=== PATIENT | female | born 1995 | race Caucasian/White ===

== ENCOUNTER → 2017-06-29 | Outpatient (CLI) | payer BC ==
[2017-06-29 15:44] LABS: HEMATOCRIT 41.7 % (37.0-47.0); HEMOGLOBIN 14.8 g/dL (12.0-16.0); MEAN CORPUSCULAR HEMOGLOBIN 32.5 PG (27-31); MEAN CORPUSCULAR HGB CONC 35.5 g/dL (33-37); MEAN CORPUSCULAR VOLUME 91.6 FL (81-99); MEAN PLATELET VOLUME 12.2 FL (7.4-12.2); RED BLOOD COUNT 4.55 10^6/uL (4.20-5.40)
== END ==
LOC: MOB LAB 15:14
PROVIDERS: ATTEND Student in an Organized Health Care Education/Training Program
DX: R10.84 Generalized abdominal pain (principal); R19.7 Diarrhea, unspecified
CPT/HCPCS: 36415; 82784; 83516; 85027

== ENCOUNTER → 2017-07-10 | Outpatient (CLI) | payer BC ==
--- NOTE | 2017-07-10 10:21 | DI ---
GALLBLADDER AND LIVER ULTRASOUND, 07/10/2017 7:47 AM: Clinical History: Right upper quadrant abdominal pain. Colicky type pain. Previous Exam: None at this facility. Technique: Scans are performed through the right upper quadrant in multiple projections. The patient was rolled from side to side and the gallbladder was balloted with the probe to facilitate visualizat ion of small gallstones. The gallbladder is well distended and has a normal wall thickness. There are no gallstones. The commo n bile duct measures less than 2 mm. The pancreas is visualized from the head to the body and is norm al. The visualized portions of the liver, right kidney, and IVC are normal. The aorta is normal. Readin. The gallbladder is normal. The common duct measures less than 2 mm. 2. The liver, right kidney, pancreas, IVC, and aorta are normal
== END ==
LOC: US 07:46
PROVIDERS: ATTEND Student in an Organized Health Care Education/Training Program
DX: R10.11 Right upper quadrant pain (principal)
CPT/HCPCS: 76705

== ENCOUNTER 2018-09-24 14:56 | Observation (INO) ==
[2018-09-24 16:15] LABS: Hematocrit [HCT] 39.5 % (37.0-47.0); MEAN CORPUSCULAR HEMOGLOBIN 32.2 PG (27-31); MEAN CORPUSCULAR HGB CONC 35.4 g/dL (33-37); MEAN CORPUSCULAR VOLUME 90.8 FL (81-99); MEAN PLATELET VOLUME 12.6 FL (7.4-12.2); RED BLOOD COUNT 4.35 10^6/uL (4.20-5.40)
[2018-09-24 16:29] LABS: BLOOD UREA NITROGEN 9 mg/dL (7-22); SERUM ALBUMIN 3.8 g/dL (3.5-4.8); Uric Acid 4.7 mg/dl (2.5-6.2)
--- NOTE | 2018-09-24 17:21 | DI ---
LIMITED OBSTETRICAL ULTRASOUND FOR BIOPHYSICAL PROFILE, 09/24/2018 4:01 PM Clinical History: Nonreactive NST. Previous Exam: 09/21/2018. EDC Based on Early OB US: 10/23/2018. JANI: 11.4 cm. Heart Rate: 149 beats per minute. Respiration Score: 2 Fine Motor Score: 2 Gross Motor Score: 2 Amnionic Fluid Score: 2 Reading: Biophysical Profile Score: 06/23
--- NOTE | 2018-09-24 17:26 | DI ---
LIMITED OBSTETRICAL ULTRASOUND FOR JANI AND CORD DOPPLER ULTRASOUND, 09/24/2018 3:52 PM: Clinical History: Variable decelerations. Previous Exam: 09/21/2018. EDC Based On Early OB Ultrasound: 10/23/2018. Scans are obtained in all four quadrants for an amnionic fluid index measurement. The JANI is 11.4 cm. The heart rate varies between 138-169 beats per minute. Cord Doppler ultrasound shows diastoli c flow. Systolic/diastolic ratios are 2.9, 2.3, 2.1, 2.8, and 2.8. These values are all within normal limits. Readin. Amnionic fluid index is 11.4 cm. 2. Cord Doppler ultrasound is normal.
--- NOTE | 2018-09-24 17:57 | OB.PROGRES ---
Intake - - Reason for Visit/Chief Complaint: NST Admitted From: Home - Estimated Due Date: 10/23/18 Gestational Age in Weeks and Days: 35 Weeks and 6 Days Para: 0 Term Births: 0 Births: 0 Number of Abortions (Spont./Elective): 0 Living Children: 0 - Labs Blood Type and Rh: B+ Group B Strep: Unknown Hepatitis B Surface Antigen: Absent HIV: Negative Rubella Status: Immune VDRL/RPR: Absent Maternal - Vital Signs Last Taken Vital Signs: Vital Signs - Last Taken Temperature 97.5 F 09/24/18 15:08 Pulse Rate 72 09/24/18 15:08 Respiratory Rate 16 09/24/18 15:08 Blood Pressure 123/67 09/24/18 15:08 Pulse Ox 99 09/24/18 15:08 - Vaginal Discharge Vaginal Bleeding Amount: None Vaginal Discharge Amount: None Results - Labs CBC and BMP: 09/24/18 16:07 09/24/18 16:07 - Bedside Testing Bedside Urine Ketone: Negative Bedside Urine Leukocytes Esterase: Negative Bedside Urine Nitrite: Negative Bedside Urine Occult Blood: Negative Bedside Urine Protein: Negative Bedside Specific [place]: 1.005 - Imaging Ultrasound Additional Imaging Details: LIMITED OBSTETRICAL ULTRASOUND FOR BIOPHYSICAL PROFILE, 09/24/2018 4:01 PM Clinical History: Nonreactive NST. Previous Exam: 09/21/2018. EDC Based on Early OB US: 10/23/2018. JANI: 11.4 cm. Heart Rate: 149 beats per minute. Respiration Score: 2 Fine Motor Score: 2 Gross Motor Score: 2 Amnionic Fluid Score: 2 Reading: Biophysical Profile Score: 8 LIMITED OBSTETRICAL ULTRASOUND FOR JANI AND CORD DOPPLER ULTRASOUND, 09/24/2018 3: 52 PM: Clinical History: Variable decelerations. Previous Exam: 09/21/2018. EDC Based On Early OB Ultrasound: 10/23/2018. Scans are obtained in all four quadrants for an amnionic fluid index measurement. The JANI is 11.4 cm. The heart rate varies between 138-169 beats per minute. Cord Doppler ultrasound shows diastolic flow. Systolic/ diastolic ratios are 2.9, 2.3, 2.1, 2.8, and 2.8. These values are all within normal limits. Readin. Amnionic fluid index is 11.4 cm. 2. Cord Doppler ultrasound is normal. Dictated By: 09/24/18 1719 FLACA HINTON MD. Signed By: 09/24/18 1726 FLACA HINTON MD. ~~REPORT ADDENDUM 09/24/18~~ ADDENDUM, 09/24/2018 5:34 PM : The attending physician requested that we rescanned the patient for presence of a nuchal cord. The patient was rescanned and there is no nuchal cord. Addendum Dictated By: FLACA HINTON Addendum Signed By: FLACA HINTON Assessment and Plan - Patient Problems (1) Variable deceleration Current Visit: Yes Status: Acute (2) Preeclampsia Current Visit: Yes Status: Acute Code(s): O14.90 - Unspecified pre-eclampsia , unspecified trimester Support Text: 23 yo at 35 6/7 weeks gestation. complicated by preeclampsia without signs or symptoms of severe features, IUGR. She came in today for her routine antepartum testing. She was on the monitor for about 20 minutes and had a variable decel down to 90 bpm, that traced very clearly. She then went for u/s , BPP was 8/8, normal cord dopplers, no nuchal cord noted. -Admit to L&D for observation, continuous monitoring. -Low threshold to consult MFM for any further decelerations. History notable for increased vaginal discharge at 27 weeks, initial amnisure test was positive, ferning, pooling, nitrazine negative, repeated after 6 hours observation was then negative and still negative ferning, pooling, nitrazine - presumably false positive. JANI has been normal. Then at 31 weeks she started having HAs and overall not feeling well. She received a course of celestone at 32 2/7 weeks gestation as her blood pressures were trending up and LFTs started trending up, with continued HAs we were concerned about progression of preeclamsia. She officially had proteinuria on 09/14 with a 24 hour urine protein of 330mg, has since has occasional BPs >140/90, but none in the severe range. Her labs have been notable for platelets 124-148, but most consistent with gestational thrombocytopenia given plt of 127 at 37 weeks.
[2018-09-24] MEDS ORDERED: Ondansetron ODT Tab 4 MG TAB PO PRN (18:00)
[2018-09-24] MEDS ORDERED: CALCIUM CARBONATE 500 MG (TUMS) CHEWABLE TABLET PO PRN (18:00)
[2018-09-24] MEDS ORDERED: Influenza 18-19 Vaccine (6mo+) 60 MCG/0.5 ML SYRINGE IM ONE (21:09)
[2018-09-24] MEDS ORDERED: Lactated Ringers 2,000 ML PRIMARY IV ONE (23:43)
[2018-09-24] MEDS: Lactated Ringers-OB Dept 1,000 ML PRIMARY IV SCH (23:45)
[2018-09-25] MEDS: BETAMET ACET/BETAMET NA PH 6 MG/1 ML - 5 ML IM SCH (00:22)
--- NOTE | 2018-09-25 00:25 | OB.PROGRES ---
Date of Service: 09/25/18 Time of Service: 00:16 Interval History: I was called by the RN for concerns over the strip. Since admission she has had a Category I strip with baseline 140s to 150s, moderate variability, accels, no decels. Then at about 1040 pm she had a stretch of about 30 minutes where she had repetetive decels down to 120. It almost looked like her baseline had changed to 120 and had accels however the baseline again returned to 140s, moderate variability, accels. She then again had a variable down to 90 at 2350 at the time of placing an IV. Patient has some heartburn but otherwise feels ok. She has noted some "period like" cramping over the day today but no real contractions. Has had some constipation over the last week. Objective - Cervical Exam [place]: rare small contractions, more uterine irritability Heart Rate: baseline 145, moderate variability, accels. Decels 2250 decel to 130lasting about 70 seconds, then again 2252 to 120 30 seconds, 2253 to 120 120 seconds - slower/more gradual to return to baseline - this one looks more like a late with a subtle contraction, 2 more subtle decels again after that. Variable at 2351 down to 80 - Labs CBC and BMP: 09/24/18 16:07 09/24/18 16:07 - Vital Signs Last Taken Vital Signs: Vital Signs - Last Taken Temperature 98.3 F 09/24/18 22:00 Pulse Rate 76 09/24/18 23:00 Respiratory Rate 16 09/24/18 22:00 Blood Pressure 97/55 09/24/18 23:00 Pulse Ox 99 09/24/18 15:08 Assessment and Plan - Patient Problems (1) Variable deceleration Current Visit: Yes Status: Acute (2) Preeclampsia Current Visit: Yes Status: Acute Code(s): O14.90 - Unspecified pre-eclampsia , unspecified trimester Support Text: 23 yo at 36 0/7 weeks gestation now with preeclampsia, IUGR admitted to obs given a variable decel noted on NST today. Strip had been very reassuring then repetetive decels starting at 2240, strip has since returned to Category I , moderate variability the entire time, baseline 145 again with accels. I discussed the case with FELICIA Albarran finance professional in [place] at [facility]. She thought that in the setting of a reassuing strip again it would be reasonable to give booster steroid shot and continue close observation here in [place] with continuous monitoring and low threshold to call again for any change in the strip. I reiterated my concern given the change in strip in setting of preeclampsia, IUGR and she felt close monitoring here was appropriate as the strip was again reassuring. Discussed all of this in detail with the patient and her , will proceed with booster steroid injection 12mg IM betamethasone. Continue close observation with continuous monitoring. IV is in place now, 500 cc LR bolus then 100 cc/hr through the night. Colace for constipation.
[2018-09-25] MEDS: Lactated Ringers 1,000 ML PRIMARY IV SCH (05:19)
[2018-09-25] MEDS: DOCUSATE 100 MG CAPSULE PO SCH (08:49)
[2018-09-25] MEDS: Prenatal Multivitamin Tab 1 TAB TAB PO SCH (08:50)
--- NOTE | 2018-09-25 10:36 | OB.PROGRES ---
Date of Service: 09/25/18 Time of Service: 10:31 Interval History: 23 yo at 36 0/7 weeks today. States she is feeling well, no contractions, nausea, IBRAHIM, RUQ pain. Objective - Cervical Exam Heart Rate: baselien 140s, moderate variability, accels, no decels. Heart Rate Interpretation Category: Category I - Labs CBC and BMP: 09/24/18 16:07 09/24/18 16:07 - Vital Signs Last Taken Vital Signs: Vital Signs - Last Taken Temperature 98.7 F 09/25/18 06:00 Pulse Rate 90 09/25/18 09:00 Respiratory Rate 14 09/25/18 06:00 Blood Pressure 117/56 09/25/18 09:00 Pulse Ox 99 09/25/18 09:00 Assessment and Plan - Patient Problems (1) Variable deceleration Current Visit: Yes Status: Acute (2) Preeclampsia Current Visit: Yes Status: Acute Code(s): O14.90 - Unspecified pre-eclampsia , unspecified trimester Support Text: There was an area of the strip at about 0830 this morning with longer, higher accels and then overshot the baseline. Nursing staff was concerned so I came in to evaluate. I did go ahead and discuss with M, Dr. Bagley, who was not concerned about the strip. She thought as long as the strip remains category I today, it would be reasonable to discharge after completing steroids, then do a growth u/s, dopplers, JANI, NST on Thursday as previously scheduled and make a delivery plan based on those results. Patient and her were updated, questions answered. Will continue close observation today and plan for second betamethasone injection tonight.
--- NOTE | 2018-09-25 16:54 | OB.PROGRES ---
Date of Service: 09/25/18 Time of Service: 16:50 Interval History: 23 yo at 36 0/7 weeks gestation. Objective - Cervical Exam Heart Rate: 2 variable decels to 110, 105 about 2.5 hours apart, strip otherwise mod variability, accels, baseline 140s. - Labs CBC and BMP: 09/24/18 16:07 09/24/18 16:07 - Vital Signs Last Taken Vital Signs: Vital Signs - Last Taken Temperature 98.0 F 09/25/18 15:00 Pulse Rate 80 09/25/18 15:00 Respiratory Rate 14 09/25/18 15:00 Blood Pressure 119/47 09/25/18 15:00 Pulse Ox 98 09/25/18 15:00 Assessment and Plan - Patient Problems (1) Variable deceleration Current Visit: Yes Status: Acute (2) Preeclampsia Current Visit: Yes Status: Acute Code(s): O14.90 - Unspecified pre-eclampsia , unspecified trimester Support Text: Case again discussed with Dr. Bagley Trina in [place]. Although she is having occasional variables in the setting of an otherwise reassuring tracing, no indication for delivery. She did not think transfer to [place] was necessary at this time. Will continue to observe. Plan to give next betamethosone injection this evening.
[2018-09-26] MEDS: BETAMET ACET/BETAMET NA PH 6 MG/1 ML - 5 ML IM SCH (00:24)
[2018-09-26] MEDS: DOCUSATE 100 MG CAPSULE PO SCH ×2 (00:24→09:14)
[2018-09-26] MEDS: Lactated Ringers-OB Dept 1,000 ML PRIMARY IV SCH ×2 (06:30→06:31)
[2018-09-26] MEDS: Lactated Ringers 1,000 ML PRIMARY IV SCH ×2 (06:30→06:31)
[2018-09-26] MEDS: Prenatal Multivitamin Tab 1 TAB TAB PO SCH ×2 (06:30→09:14)
[2018-09-26] MEDS ORDERED: Influenza 18-19 Vaccine (6mo+) 60 MCG/0.5 ML SYRINGE IM ONE (09:12)
--- NOTE | 2018-09-26 09:27 | DI ---
EXAM: US Uterus, Limited CLINICAL HISTORY: 23-year-old female with variables on EFM, preeclampsia; check JANI. SABI = 10/23/2018. TECHNIQUE: Real-time ultrasound of the maternal uterus (limited) with image documentation. COMPARISON: Obstetrical ultrasounds 09/24/2018, 09/21/2018. FINDINGS: Fetus: Single live intrauterine fetus in cephalic presentation, with HR = 136 bpm. Placenta: Grossly unremarkable fundal placenta. Amniotic fluid: JANI = 10.7 cm. IMPRESSION: 1. Single live intrauterine fetus in cephalic presentation, as before. 2. JANI = 10.7 cm, slightly less than measured on the prior recent exams.
--- NOTE | 2018-09-26 10:06 | OB.PROGRES ---
Date of Service: 09/26/18 Time of Service: 09:59 Interval History: 23 yo at 36 1/7 weeks gestation. States she is feeling well, going a little stir crazy but did get some rest last night Objective - Cervical Exam [place]: some irritability, up to q12 minute contractions Heart Rate: baseline 140s, moderate variability, accels. variables at 1030 last night and 545 this morning. possible subtle late at 0950 this morning , but it looks like her baseline changed now to 130s - Labs CBC and BMP: 09/24/18 16:07 09/24/18 16:07 - Vital Signs Last Taken Vital Signs: Vital Signs - Last Taken Temperature 98.2 F 09/26/18 05:00 Pulse Rate 69 09/26/18 05:00 Respiratory Rate 16 09/26/18 05:00 Blood Pressure 114/48 09/26/18 05:00 Pulse Ox 99 09/25/18 16:00 - Imaging Ultrasound Additional Imaging Details: 1. Single live intrauterine fetus in cephalic presentation, as before. 2. JANI = 10.7 cm, slightly less than measured on the prior recent exams. Assessment and Plan - Patient Problems (1) Variable deceleration Current Visit: Yes Status: Acute (2) Preeclampsia Current Visit: Yes Status: Acute Code(s): O14.90 - Unspecified pre-eclampsia , unspecified trimester Support Text: 23 yo at 36 1/7 weeks gestation with preeclampsia (still without signs or symptoms of severe PreE), IUGR who was admitted Thursday night after a variable deceleration was noted on her scheduled testing. She has since had rare intermittent variable decelerations in an otherwise reassuring strip. Her JANI was rechecked this morning and was 10.7 cm, slightly less than Thursday. She did have a 2 decels overnight. She received a rescue course of steroids. We were discussing discharge and she had a contraction with a subtle late decel. Will plan to observe for several more hours. If nothing further reassess discharge to home with NST tomorrow morning, NST, JANI, dopplers and growth scan tomorrow. GBS was collected this morning.
[2018-09-26 11:06] VITALS: RESP 18; TEMP 97.7; O2SAT 98
[2018-09-26 13:12] VITALS: BP 112/53
== END 2018-09-26 14:36 | disposition home or self-care (01) ==
LOC: OBIP 14:56 → OBOP 14:56
PROVIDERS: ADMIT Student in an Organized Health Care Education/Training Program; ATTEND Student in an Organized Health Care Education/Training Program